=== PATIENT | male | born 1970 | race African-American/Black ===

== ENCOUNTER → 2016-11-26 | Outpatient (CLI) | payer BC ==
[~2016-11-26] MED LIST: IBUPROFEN800 MG PO; MULTIVITAMINS1 EAC3 PO; ZESTORETIC 20-1 EACH PO
--- NOTE | ~2016-11-26 | CR97 ---
[facility] A Service of [facility] RADIOLOGY TEXT RESULTS PATIENT: TONY HERMAN LOCATION: [facility] : 70 UNIT #: [id number] AGE: [address]: Nhan Alfaro III, MD SEX: M ORDER DR: [id number] [facility] [address] [place], [place] [address] [id number] O MR#: [id number] Acc #: [id number] NAME: TONY HERMAN. : 1970 SEX: M STUDY DATE/TIME: 11/26/2016 8:51 UNIT: [facility] ROOM: STUDY DESCRIPTION: CR Esophagram Attending Physician: Nhan Alfaro III, M.D. Referring Physician: Nhan Alfaro III, M.D. Ordering Physician: Nhan Alfaro III, M.D. Primary Care Physician: Kaylee Peres M.D. MEDICAL IMAGING REPORT This report is preliminary unless electronic signature is present EXAM Barium esophagram INDICATION Morbid obesity. Preop for Lap-Band surgery. The fluoro time was 0.4 minutes. 12 images were taken. FINDINGS There is a small sliding hiatal hernia. Thoracic esophagus is normal in course and caliber. IMPRESSION Small sliding hiatal hernia, otherwise unremarkable. Dictated by... Joselito Hagen M.D. THIS IS AN ELECTRONICALLY VERIFIED REPORT Joselito Hagen M.D. at 12/01/2016 7:13 AM KRISTA/maddi TD: 11/30/2016 08:28 JOB #: [id number] MEDICAL IMAGING REPORT Page 1 of 1 COPY
--- NOTE | ~2016-11-26 | EKG ---
PATIENT: TONY HERMAN UNIT #: [id number] Ventricular Rate: 66 BPM Atrial Rate: 66 BPM P-R Interval: 156 ms QRS Duration: 86 ms Q-T Interval: 402 ms QTC Calculation(Bezet): 421 ms P Northridge: 12 degrees Calculated R Northridge: -26 degrees Calculated T Northridge: -13 degrees Diagnosis Line: Normal sinus rhythm Diagnosis Line: Normal ECG Diagnosis Line: No previous ECGs available Diagnosis Line: Confirmed by KRIS PORTILLO MD ([id number]) on Diagnosis Line: 11/28/2016 11:13:47 PM INTERPRETING MD: BANDAR TORRES
--- NOTE | ~2016-11-26 | CR63 ---
[facility] A Service of [facility] RADIOLOGY TEXT RESULTS PATIENT: TONY HERMAN LOCATION: [facility] : 70 UNIT #: [id number] AGE: [address]: Nhan Alfaro III, MD SEX: M ORDER DR: [id number] [facility] [address] [place], [place] [address] [id number] O MR#: [id number] Acc #: [id number] NAME: TONY HERMAN. : 1970 SEX: M STUDY DATE/TIME: 11/26/2016 8:42 UNIT: [facility] ROOM: STUDY DESCRIPTION: CR Chest 2 View Attending Physician: Nhan Alfaro III, M.D. Referring Physician: Nhan Alfaro III, M.D. Ordering Physician: Nhan Alfaro III, M.D. Primary Care Physician: Kaylee Peres M.D. MEDICAL IMAGING REPORT This report is preliminary unless electronic signature is present EXAM Chest 11/26/2016. HISTORY 46-year-old woman preop adjustable gastric band placement with possible paraesophageal hernia repair. History of cough one week duration, short of breath and high blood pressure. History of recent pneumonia. COMPARISON Chest none. Two PA chest views are provided. Lateral view is not included. Borderline heart size with mild aortic ectasia. Hilar structures are preserved. Bilateral lungs are expanded and clear and costophrenic angles are preserved. IMPRESSION No acute chest finding. Dictated by... Segun Betancourt M.D. THIS IS AN ELECTRONICALLY VERIFIED REPORT Segun Betancourt M.D. at 11/26/2016 12:01 PM Felipe TD: 11/26/2016 10:35 JOB #: [id number] MEDICAL IMAGING REPORT Page 1 of 1 COPY
[2016-11-26 09:55] LABS: HEMATOCRIT 44.6 % (38.0-50.0); HEMOGLOBIN 14.5 gm/dL (13.0-16.0); MEAN CELL VOLUME 84.6 FL (83-96); MEAN CORPUSCULAR HEMOGLOBIN 27.6 PG (28-34); MEAN CORPUSCULAR HGB CONC 32.6 g/dL (30-36); MEAN PLATELET VOLUME 7.6 FL (6.5-11.5); RED BLOOD COUNT 5.27 X10e (3.90-5.60); RED CELL DISTRIBUTION WIDTH 15.1 % (11.0-15.5); WHITE BLOOD COUNT 8.9 X10e3 (4.0-10.5)
[2016-11-26 10:17] LABS: BILIRUBIN,TOTAL 0.7 mg/dL (0.2-2.0); BUN/CREATININE RATIO 12.3; CREATININE SERUM 1.3 mg/dL (0.6-1.4); GLOM FILT RATE Estimated 75.9 mL/min (>60); POTASSIUM 4.1 mmol/L (3.5-5.1); PROTEIN TOTAL SERUM 6.8 g/dL (6.0-8.3)
== END | disposition home or self-care (01) ==
LOC: CRAD 08:29 → CAMB 09:30
PROVIDERS: Surgery
DX: Z01.818 Encounter for other preprocedural examination (principal); E66.01 Morbid (severe) obesity due to excess calories; K44.9 Diaphragmatic hernia without obstruction or gangrene
CPT/HCPCS: 36415; 71020; 74220; 80053; 80061; 84443; 85027; 93005

== ENCOUNTER 2016-12-08 07:49 | Observation (INO) | payer BC ==
[~2016-12-08] VITALS: Ht 180.3 cm; Wt 138.6 kg
--- NOTE | ~2016-12-08 | CO ---
Unit #: [id number] #: [id number] Patient: TONY HERMAN [id number] [address] [place], [place] [address] [id number] O MR#: [id number] NAME: TONY HERMAN ROOM: Age: 46 Sex: M Admission Date: 12/08/2016 : 1970 Attending Physician: Nhan Alfaro III, M.D. Primary Care Physician: Kaylee Peres M.D. Consultation Date: 12/08/2016 CONSULTATION REPORT REASON FOR CONSULT Hypoxia. HISTORY OF PRESENT ILLNESS This is a very pleasant 46-year-old gentleman with a past medical history significant for arthritis, morbid obesity, and hypertension, who presented to the hospital for elective gastric bypass. Intraoperatively, patient suffered from a significant episode of hypoxia that needed a good time to recover. Per Anesthesia report, patient also lost his tidal volume on the ventilator, and he needed higher positive pressure to recover his oxygenation. He underwent bronchoscopy by Dr. Pugh that did not reveal any major mucus plug. However, he had a copious amount of secretions that was aspirated. Patient currently is still under anesthesia and unable to provide a good history, so per his who was at bedside, patient has had a cold recently and is taking Mucinex for cough and sputum production. Patient is active otherwise, and there was no recent history of immobility. Patient was tested for sleep apnea in the past, and he was told that it was positive, but he never received a CPAP machine, and does not know why. Patient does not have any other history of asthma, COPD, or lung issues. PAST MEDICAL HISTORY 1. Hypertension. 2. Morbid obesity. 3. Arthritis. PAST SURGICAL HISTORY 1. Tonsillectomy. 2. Knee surgery. SOCIAL HISTORY Patient does not smoke, drink, or use (1) . He lives with his . FAMILY HISTORY Arthritis and hypertension. HOME MEDICATIONS 1. Ibuprofen. 2. Lisinopril. 3. Hydrochlorothiazide. 4. Meloxicam. Unit #: [id number] #: [id number] Patient: TONY HERMAN 5. Pravastatin. ALLERGIES No known drug allergies. REVIEW OF SYSTEMS Unable to obtain from the patient due to his condition. PHYSICAL EXAMINATION GENERAL: Patient is in no acute distress. Currently, he is waking up from anesthesia. HEENT: Atraumatic and normocephalic. PERRLA. EOMI. NECK: Supple. No JVD, no lymphadenopathy. CLEAR: Shallow breathing with fine rhonchi. HEART: S1 and S2. No murmur, gallops, or rubs. ABDOMEN: Soft. Tender to deep palpation. Bowel sounds negative. SKIN: No rashes. CENTRAL NERVOUS SYSTEM: Patient is waking up from anesthesia, but he is following simple commands, and there is no focal weakness. DIAGNOSTIC STUDIES LABORATORY: Unavailable. IMAGING: Chest x-ray is pending at the time of dictation. ASSESSMENT 1. Acute hypoxic respiratory failure, likely postoperative related and mucus plug intraoperatively. 2. Obstructive sleep apnea, not treated. 3. Morbid obesity. 4. Hypertension. 5. Arthritis. 6. Hyperlipidemia. PLAN 1. Will continue to wean oxygen down as tolerated. 2. The differential diagnosis of his hypoxia is likely related to mucus plug. There are no signs or symptoms or risk factor at this point to suggest pulmonary embolus or major heart attack. 3. Will follow up chest x-ray result and tailor our treatment based on that. 4. Will add bronchodilator and incentive spirometer. 5. DVT prophylaxis. I would like to thank Dr. Pugh for allowing me to be part of this patient's care. Dictated by... Jai Seay TD: 12/08/2016 14:29 JOB #: [id number] Unit #: [id number] #: [id number] Patient: TONY HERMAN CONSULTATION REPORT Page 1 of 1 X MARYANN SKAGGS MD CONSULTATION REPORT
--- NOTE | ~2016-12-08 | CR71 ---
[facility] A Service of [facility] RADIOLOGY TEXT RESULTS PATIENT: TONY HERMAN LOCATION: [place] [address] : 70 UNIT #: [id number] AGE: [address]: Nhan Alfaro III, MD SEX: M ORDER DR: [id number] [facility] [address]. [place], [place] [address] [id number] O MR#: [id number] Acc #: [id number] NAME: TONY HERMAN : 1970 SEX: M STUDY DATE/TIME: 12/08/2016 11:38 UNIT: [facility] ROOM: STUDY DESCRIPTION: CR Chest Single View Attending Physician: Nhan Alfaro III, M.D. Ordering Physician: Nhan Alfaro III, M.D. Primary Care Physician: Kaylee Peres M.D. MEDICAL IMAGING REPORT This report is preliminary unless electronic signature is present EXAM Frontal chest 12/08/2016 INDICATIONS Status post lap-band placement. Short of air and abdominal pain today. TECHNIQUE Frontal chest compared with 11/26/2016 FINDINGS Cardiac silhouette is borderline in size and stable. Lung volumes are lower and there is some probable retrocardiac atelectasis on the left. There are new perihilar opacities on the right probably exacerbated by low lung volumes and favored to represent areas of asymmetric atelectasis. A repeat better inspiratory effort frontal chest or departmental two-view chest is recommended when clinically appropriate. No effusion or pneumothorax. IMPRESSION 1. Low-volume image with interval increase in atelectatic changes bilaterally. A departmental two-view chest or better inspiratory effort frontal chest would be helpful when clinically appropriate for further assessment. Dictated by... Leonel De La Torre M.D. THIS IS AN ELECTRONICALLY VERIFIED REPORT Leonel De La Torre M.D. at 12/09/2016 9:29 AM YESI/natanael TD: 12/08/2016 14:28 JOB #: [id number] [facility] A Service of [facility] RADIOLOGY TEXT RESULTS PATIENT: TONY HERMAN LOCATION: [place] [address] : 70 UNIT #: [id number] AGE: [address]: Nhan Alfaro III, MD SEX: M ORDER DR: MEDICAL IMAGING REPORT Page 1 of 1 COPY
--- NOTE | ~2016-12-08 | OR ---
Unit #: [id number] #: [id number] Patient: TONY HERMAN [id number] [facility] [address]. [place], [place] [address] [id number] Jose Angel MR#: [id number] NAME: TONY HERMAN. ROOM: 477 Date of Procedure: 12/08/2016 Admission Date: 12/08/2016 Surgeon: Nhan Alfaro III, M.D. : 1970 Attending Physician: Nhan Alfaro III, M.D. Primary Care Physician: Kaylee Peres M.D. OPERATIVE REPORT PREOPERATIVE DIAGNOSIS Chronic morbid obesity. POSTOPERATIVE DIAGNOSIS Chronic morbid obesity. SECONDARY DIAGNOSIS Large paraesophageal hernia with an anterior and posterior component. [employer] OPER[employer] Dr. Kike Adler. PROCEDURE PERFORMED Laparoscopic adjustable gastric banding (AP large with low-profile port) and laparoscopic paraesophageal hernia repair. ESTIMATED BLOOD LOSS Minimal. COMPLICATIONS Some hypoxia during the midportion of the case. INDICATIONS FOR PROCEDURE This is a 46-year-old gentleman, who has chronic morbid obesity with a BMI of 43 and associated comorbidities of hypertension. He has been through the bariatric program at [facility] and understands risks and benefits of the procedure. DESCRIPTION OF PROCEDURE After consent was obtained, including the risks and benefits of slippage, erosion, port dysfunction, and possible failure of weight loss due to noncompliance, the patient was taken to the operating room and placed in the supine position. General anesthetic was administered and the abdomen was prepped and draped in standard surgical fashion. I began by making a 2 cm incision just above and to the left of the umbilicus. I used a Visiport to enter the peritoneal cavity without any difficulty. C02 pneumoperitoneum was then established. Next, I placed a 5 mm port in the right upper quadrant, a 5 mm Oliver liver retractor in the subxiphoid region to provide exposure of the gastroesophageal junction. Next, a 10 mm port was placed in the left upper quadrant and a 5 mm port was placed in the left lateral subcostal region. I began by Unit #: [id number] #: [id number] Patient: TONY HERMAN performing an examination of the GE junction to evaluate for a hiatal hernia. We then scored the peritoneal attachments overlying the angle of His. I then opened up the clear space in the gastrohepatic ligament, and then using 2 blunt graspers, I identified the small fat pad crossing over the right crura. I swept the fat anterior to the crura off the crura and using the pars flaccida, I created a retrogastric tunnel where the blunt grasper exited at the angle of His. Once I had made this tunnel safely, I then inserted an Allergan AP band into the abdominal cavity. This adjustable gastric band was then place around the upper part of the stomach and fastened and buckled anteriorly. We then tacked the lateral fundus over the band to the proximal pouch with 2 interrupted 0 Ethibond sutures. I then used a third stitch to imbricate the excess anterior stomach by going from the lesser curvature up towards where the last stitch was placed. We then had excellent hemostasis. I removed the Oliver liver retractor. We then removed the port tubing through the initial port incision. The rest of the ports were removed, and the pneumoperitoneum was released. I then left a small tail on the tubing. We then attached the port to the excess band tubing. We placed a piece of Prolene mesh along the back side of the port and used a Prolene stitch to anchor this mesh in place. We then trimmed the excess mesh so that just a small footprint of mesh was in place behind the port. I then inserted the tubing back into the abdominal cavity, and we placed the port into a small pocket that was made just inferior to where our initial port incision was made. The mesh was in direct contact with the fascia, and this will scar in place to hold the port in place. We then injected all the port sites with 0.25% plain Marcaine, and I reapproximated the skin edges with interrupted 4-0 Vicryl subcuticular sutures. Steri-strips were then applied. The patient tolerated the procedure without any problems and returned to the recovery room in stable condition. ADDENDUM After exposure of the GE junction, the patient was noted have a fairly moderate- to large-sized paraesophageal hernia. I scored the phrenoesophageal ligament and reduced a fairly large fat pad going up above the crural defect. I also dissected out the posterior esophagus as well as the posterior crura. Once these were carefully identified, I then reapproximated the defect with 2 separate interrupted 0 Ethibond [id number] sutures. At this point, he was noted to have some hypoxia as well as diminished or absent breath sounds on the left side. We actually released the pneumoperitoneum and flatten the patient out. Anesthesia was able to obtain breath sounds on the left side and his saturations improved to where we could finish the case as described above. Dictated by... Nhan Alfaro III, M.D. VCL/barbara TD: 12/09/2016 00:16 JOB #: [id number] Unit #: [id number] #: [id number] Patient: TONY HERMAN OPERATIVE REPORT Page 1 of 1 X Nhan Alfaro III, MD X PROCEDURE OPERATIVE NOTE
--- NOTE | ~2016-12-08 | CR7 ---
[facility] A Service of [facility] RADIOLOGY TEXT RESULTS PATIENT: TONY HERMAN LOCATION: [place] [address] : 70 UNIT #: [id number] AGE: [address]: Nhan Alfaro III, MD SEX: M ORDER DR: [id number] [place] [address] [place], [place] [address] [id number] O MR#: [id number] Acc #: [id number] NAME: TONY HERMAN : 1970 SEX: M STUDY DATE/TIME: 12/08/2016 11:41 UNIT: [facility] ROOM: STUDY DESCRIPTION: CR Abdomen Single AP View Attending Physician: Nhan Alfaro III, M.D. Ordering Physician: Nhan Alfaro III, M.D. Primary Care Physician: Kaylee Peres M.D. MEDICAL IMAGING REPORT This report is preliminary unless electronic signature is present EXAM Frontal abdomen, 12/08/2016 INDICATION Status post Lap-Band placement. Short of air and abdominal pain today. TECHNIQUE Frontal abdomen was performed. COMPARISON No comparisons. FINDINGS The patient is status post Lap-Band placement. The patient is obliqued and the phi angle is on the order of 71 degrees. There is no air-fluid level proximal to the Lap-Band. No dilated air-filled loops of bowel are seen. IMPRESSION Status post Lap-Band placement. The patient is obliqued and the phi angle is difficult to measure but is on the order of about 71 degrees. No upstream air-fluid level from the Lap-Band or dilated air-filled loops of bowel are seen. Dictated by... Leonel De La Torre M.D. THIS IS AN ELECTRONICALLY VERIFIED REPORT Leonel De La Torre M.D. at 12/09/2016 9:32 AM Letty TD: 12/08/2016 14:14 JOB #: [id number] [facility] A Service of [facility] RADIOLOGY TEXT RESULTS PATIENT: TONY HERMAN LOCATION: [facility] [id number] : [birth year] UNIT #: [id number] AGE: [address]: Nhan Alfaro III, MD SEX: M ORDER DR: MEDICAL IMAGING REPORT Page 1 of 1 COPY
== END 2016-12-09 09:47 | disposition home or self-care (01) | DRG 641 ==
LOC: CSUR 07:49 → C4C 15:45 → CSUR 15:45 → C4C 16:49
DX: E66.01 Morbid (severe) obesity due to excess calories (principal); K44.9 Diaphragmatic hernia without obstruction or gangrene; I10 Essential (primary) hypertension; M19.90 Unspecified osteoarthritis, unspecified site; Z68.41 Body mass index [BMI] 40.0-44.9, adult; Z79.1 Long term (current) use of non-steroidal anti-inflammatories (NSAID); Z79.899 Other long term (current) drug therapy
CPT/HCPCS: 71010; 74000; 94640; 94760; 94761; 94762; 96374; 96375; 96376; C1781; G0378; J0171; J0330; J0690; J1650; J1885; J2250; J2405; J2710; J3010